=== PATIENT | male | born 1945 | race Caucasian/White ===

== ENCOUNTER → 2024-01-12 13:52 | Outpatient (CLI) | payer OTHER, SELFPAY ==
--- NOTE | 2024-01-12 13:57 | DI.ECHO.S_ITS ---
[facility] : : [address] : : [place] : : [id number] : : Phone: [phone] Echocardiogram Report + + :Name: CHRISTIANO MURRELL Study Date: 01/12/2024 Height: 67 in : :[facility] ReadingLocation: Weight: 160 lb : : Gender: Male BSA: 1.8 m2 : :: 1945 Age: 78 yrs BP: 156/69 mmHg: :Reason For Study: H&P EVAL FOR [facility] : :Ordering Physician: TITO, : :ALFONSO Performed By: Wally Ribera : :Referring: ALFONSO FRANCIS : + + Interpretation Summary 1. The left ventricle contractility is normal. Estimate ejection fraction is 50 to 55% with no segmental wall motion abnormalities. No LVH. Unable to comment on diastolic function. 2. The right ventricular contractility is normal. 3. All cardiac chambers are normal size. 4. Mild pulmonic insufficiency. 5. No obvious intracardiac shunts. 6. No obvious ventricular masses nor thrombi. 7. No hemodynamically significant pericardial effusion. 8. Low right-sided filling pressures. Conclusion: Normal biventricular systolic function with no significant valvular abnormalities. Procedure: A two-dimensional transthoracic echocardiogram with color flow and Doppler was performed. The study quality was technically good. There is no prior echocardiogram noted for this patient. The patient was in atrial fibrillation with heart rates between 69-80 bpm during the exam. Left Ventricle: The left ventricle is normal in size. Left ventricular wall thickness is at the upper limits of normal. There is no ventricular septal defect visualized. The ejection fraction is estimated to be 50-55%. Right Ventricle: The right ventricle is normal in size and function. Atria: The left atrial size is normal. Right atrial size is normal. Mitral Valve: The mitral valve is normal in structure and function. There is no mitral regurgitation noted. Aortic Valve: The aortic valve is trileaflet. The aortic valve opens well. The aortic valve is moderately calcified. There is trace aortic regurgitation. Tricuspid Valve: The tricuspid valve is normal in structure and function. There is trace tricuspid regurgitation. The right ventricular systolic pressure is estimated to be at least 27 mmHg based on an estimated right atrial pressure of 3 mm Hg. Pulmonic Valve: The pulmonic valve is normal in structure and function. There is mild pulmonic regurgitation. Great Vessels: The aortic root is normal size. The dimensions of the ascending aorta are normal. The pulmonary artery is normal size. The IVC is of normal diameter and collapses greater than 50% with a sniff. This suggests a low right atrial pressure of 3 mm Hg. Pericardium/ Pleura There is no pericardial effusion. There is no pleural effusion. MMode/2D Measurements & Calculations LVIDd: 4.3 cm LVOT diam: 2.3 cm LVIDs: 2.7 cm Ao root diam: 3.7 cm FS: 37.4 % asc Aorta Diam: 3.3 cm EPSS: 1.7 cm IVSd: 0.89 cm LVPWd: 1.1 cm LV kamara. diameter/BSA (cm/m^2): 2.3 LV sys. diameter/BSA (cm/m^2): 1.5 LA A2 area: 18.6 cm2 RA long axis: 5.5 cm LA A4 area: 16.4 cm2 RA area: 18.0 cm2 LA length (vol): 5.2 cm RA vol: 50.2 ml LA vol: 50.0 ml RA : 27.3 ml/m2 LA vol index: 27.2 ml/m2 IVC diam: 1.8 cm RVDd major: 3.1 cm RVD2 (mid): 2.8 cm TAPSE: 2.2 cm Doppler Measurements & Calculations Ao V2 max: 98.5 cm/sec LVOT Max Chet: 75.4 cm/sec Ao V2 mean: 70.8 cm/sec LV V1 max P.3 mmHg Ao max P.9 mmHg LV V1 VTI: 15.2 cm Ao mean P.3 mmHg WENDY(I,D): 3.3 cm2 Ao V2 VTI: 18.2 cm WENDY(V,D): 3.1 cm2 sev ratio: 0.83 WENDY indexed to BSA (cm^2/m^2): 1.8 MV E max chet: 39.7 cm/sec TR max chet: 244.3 cm/sec MV A max chet: 70.7 cm/sec TR max P.0 mmHg MV E/A: 0.56 PA V2 max: 61.7 cm/sec MV dec time: 0.38 sec PA V2 mean: 43.8 cm/sec PA mean P.86 mmHg PA pr(Accel): 40.2 mmHg SV(LVOT): 60.8 ml Reading Physician:
== END ==
LOC: ECHO 13:56
PROVIDERS: PCP Family Medicine; Referring Provider Physician Assistant; Visit Provider Physician Assistant
DX: Z00.00 Encounter for general adult medical examination without abnormal findings (principal); I37.1 Nonrheumatic pulmonary valve insufficiency
CPT/HCPCS: 93306